=== PATIENT | male | born 1995 | race American Indian/Alaskan Native ===

== ENCOUNTER 2019-03-13 11:28 | Emergency (ER) | payer OTHER ==
[2019-03-13 11:36] VITALS: BP 117/79
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
[2019-03-13] MEDS ORDERED: IBUPROFEN 800 MG TAB PO ONE (11:48)
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
== END 2019-03-13 12:20 | disposition home or self-care (01) ==
LOC: ED 11:28
DX: S39.012A Strain of muscle, fascia and tendon of lower back, initial encounter (principal); S09.90XA Unspecified injury of head, initial encounter; F12.10 Cannabis abuse, uncomplicated; Z88.1 Allergy status to other antibiotic agents; V89.2XXA Person injured in unspecified motor-vehicle accident, traffic, initial encounter; Y93.89 Activity, other specified; Y92.410 Unspecified street and highway as the place of occurrence of the external cause; Y99.8 Other external cause status
CPT/HCPCS: 99282

== ENCOUNTER 2019-03-15 17:34 | Emergency (ER) | payer OTHER ==
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
[2019-03-15] MEDS ORDERED: HYDROcodone/ACETAMINOPHEN 5-325 MG TAB PO ONE (18:42)
[2019-03-15] MEDS ORDERED: IBUPROFEN 800 MG TAB PO ONE (18:42)
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
[2019-03-15 20:46] VITALS: BP 124/78
== END 2019-03-15 20:44 | disposition home or self-care (01) ==
LOC: ED 17:34
DX: S16.1XXA Strain of muscle, fascia and tendon at neck level, initial encounter (principal); M25.511 Pain in right shoulder; M25.512 Pain in left shoulder; F12.10 Cannabis abuse, uncomplicated; Z79.899 Other long term (current) drug therapy; Z88.1 Allergy status to other antibiotic agents; V49.49XA Driver injured in collision with other motor vehicles in traffic accident, initial encounter; Y93.89 Activity, other specified; Y92.488 Other paved roadways as the place of occurrence of the external cause; Y99.8 Other external cause status
CPT/HCPCS: 72125; 99283